=== PATIENT | male | born 1995 | race Caucasian/White ===

== ENCOUNTER 2016-08-14 23:53 | Emergency (ER) | payer OTHER ==
[~2016-08-14] VITALS: Ht 182.9 cm; Wt 92.0 kg
[~2016-08-14 23:53] MED LIST: ABILIFY10 MG PO; ABILIFY20 MG; ABILIFY20 MG PO; ABILIFY30 MG PO; ADVIL,NUPRIN,M200 MG PO; ALBUTEROL SULF8.5 GM IH; ARIPIPRAZOLE10 MG PO; ATARAX,VISTARIL25 MG PO; AZITHROMYCIN250 MG1 PO; BENADRYL25 MG PO; CLARITIN10 MG PO; FLEXERIL5 MG PO; FLUOXETINE HCL40 MG PO; FOCALIN XR20 MG; FOCALIN XR20 MG PO; KENALOG,ARISTOC80 GM TP; LABETALOL; MONTELUKAST SOD10 MG PO; MOTRIN600 MG PO; NAPROSYN500 MG PO; NAPROXEN500 MG PO; OMEPRAZOLE20 MG PO; PEPCID20 MG PO; PREDNISONE50 MG PO; PROAIR RESPICL90 MCG IH; ROBITUSSIN AC,T10 ML PO; SERTRALINE HCL50 MG PO; STRATTERA10 MG PO; STRATTERA40 MG PO
[2016-08-15 00:17] VITALS: BP 121/76
[2016-08-15] MEDS ORDERED: CLEOCIN300 MG PO (01:38)
[2016-08-15] MEDS ORDERED: NAPROSYN500 MG PO (01:38)
== END 2016-08-15 02:01 | disposition home or self-care (01) ==
LOC: RME 23:53 → EME 23:53 → RME 08-15 02:01
DX: L03.031 Cellulitis of right toe (principal)
CPT/HCPCS: 99281; 99284

== ENCOUNTER 2016-08-29 04:56 | Emergency (ER) | payer OTHER ==
[~2016-08-29] VITALS: Ht 190.5 cm; Wt 93.5 kg
[~2016-08-29 04:56] MED LIST changes: +CLEOCIN300 MG PO
[2016-08-29] MEDS ORDERED: ATARAX,VISTARIL25 MG PO (05:04)
[2016-08-29 05:44] VITALS: BP 145/80
[2016-08-30] MEDS ORDERED: ATARAX,VISTARIL25 MG PO (22:09)
== END 2016-08-29 05:49 | disposition home or self-care (01) ==
LOC: EME 04:56
DX: F41.0 Panic disorder [episodic paroxysmal anxiety] (principal); Z87.891 Personal history of nicotine dependence
CPT/HCPCS: 99281; 99284; Q0177

== ENCOUNTER 2016-08-30 21:58 | Emergency (ER) | payer OTHER ==
[~2016-08-30] VITALS: Ht 182.9 cm; Wt 90.4 kg
[2016-08-30] MEDS ORDERED: ATARAX,VISTARIL25 MG PO (22:09)
[2016-08-30 22:31] VITALS: BP 145/96
== END 2016-08-30 22:32 | disposition home or self-care (01) ==
LOC: EME 21:58
DX: F41.9 Anxiety disorder, unspecified (principal); F32.9 Major depressive disorder, single episode, unspecified; I10 Essential (primary) hypertension; F84.0 Autistic disorder; Z87.891 Personal history of nicotine dependence
CPT/HCPCS: 99281; 99283; Q0177

== ENCOUNTER 2016-09-14 21:17 | Emergency (ER) | payer OTHER ==
[~2016-09-14] VITALS: Ht 182.9 cm; Wt 91.0 kg
[2016-09-14] MEDS ORDERED: MOTRIN800 MG PO (22:54)
[2016-09-14 23:44] VITALS: BP 153/86
== END 2016-09-14 23:45 | disposition home or self-care (01) ==
LOC: EME 21:17
PROC: 2W3TX1Z Immobilization of Left Foot using Splint (ICD-10-PCS; principal; 2016-09-14)
DX: S90.02XA Contusion of left ankle, initial encounter (principal); S93.602A Unspecified sprain of left foot, initial encounter; V03.90XA Pedestrian on foot injured in collision with car, pick-up truck or van, unspecified whether traffic or nontraffic accident, initial encounter; Y93.01 Activity, walking, marching and hiking
CPT/HCPCS: 73610; 73630; 99281; 99284

== ENCOUNTER 2016-09-15 14:57 | Emergency (ER) | payer OTHER ==
[~2016-09-15] VITALS: Ht 182.9 cm; Wt 91.0 kg
[~2016-09-15 14:57] MED LIST changes: +MOTRIN800 MG PO
[2016-09-15 15:14] VITALS: BP 128/72
== END 2016-09-15 17:27 | disposition home or self-care (01) ==
LOC: EME 14:57
PROC: 2W3RX1Z Immobilization of Left Lower Leg using Splint (ICD-10-PCS; principal; 2016-09-15)
DX: S93.402A Sprain of unspecified ligament of left ankle, initial encounter (principal)
CPT/HCPCS: 99281; 99284

== ENCOUNTER 2017-03-15 00:41 | Emergency (ER) | payer OTHER ==
[~2017-03-15] VITALS: Ht 185.4 cm; Wt 96.4 kg
[2017-03-15 00:53] VITALS: BP 143/78
== END 2017-03-15 03:18 | disposition left against medical advice (07) ==
LOC: EME 00:41
DX: M79.674 Pain in right toe(s) (principal); Z53.21 Procedure and treatment not carried out due to patient leaving prior to being seen by health care provider
CPT/HCPCS: 73630

== ENCOUNTER 2017-09-01 20:48 | Emergency (ER) | payer OTHER ==
[~2017-09-01] VITALS: Ht 182.9 cm; Wt 109.2 kg
[~2017-09-01 20:48] MED LIST changes: +KEFLEX500 MG PO; +SKELAXIN800 MG PO
[2017-09-01 23:04] LABS: APPEARANCE SL.HAZY ((CLEAR)); BILIRUBIN NEGATIVE; BLOOD NEGATIVE; COLOR YELLOW ((YELLOW)); GLUCOSE (STRIP) NEGATIVE; KETONES NEGATIVE; LEUKOCYTES MODERATE; NITRITE NEGATIVE; PROTEIN (STRIP) 30; SPECIFIC GRAVITY 1.023 (1.000-1.030); UROBILINOGEN 0.2 MG/DL (0.2-1.0)
[2017-09-01 23:11] LABS: BACTERIA RARE /HPF; EPITHELIAL CELLS 1+ /HPF; MUCUS TRACE /LPF; UCUL ADDED? YES; WHITE BLOOD CELLS 40-50 /HPF (0-5)
[2017-09-02] MEDS ORDERED: CIPRO250 MG PO (01:47)
[2017-09-02 02:03] VITALS: BP 161/116
[2017-09-02 02:16] LABS: SOURCE URINE
[2017-09-02 10:01] LABS: HEPATITIS B SURFACE ANTIGEN Nonreactive; HEPATITIS C ANTIBODY Nonreactive
[2017-09-02 10:02] LABS: ANTI-HEPATITIS A VIRUS (IGM) Nonreactive
[2017-09-02 10:03] LABS: ANTI-HEPATITIS B CORE (IGM) Nonreactive
[2017-09-02 10:28] LABS: TREPONEMA ANTIBODY NEGATIVE (NEGATIVE)
[2017-09-02 13:29] LABS: CHLAMYDIA TRACHOMATIS NEGATIVE; NEISSERIA GONORRHOEAE NEGATIVE
== END 2017-09-02 02:00 | disposition home or self-care (01) ==
LOC: EME 20:48
PROVIDERS: Emergency Medicine
DX: S30.1XXA Contusion of abdominal wall, initial encounter (principal); T76.21XA Adult sexual abuse, suspected, initial encounter; Y04.2XXA Assault by strike against or bumped into by another person, initial encounter; Y92.26 Movie house or cinema as the place of occurrence of the external cause; N30.00 Acute cystitis without hematuria; Z11.3 Encounter for screening for infections with a predominantly sexual mode of transmission; I10 Essential (primary) hypertension; F31.9 Bipolar disorder, unspecified; F32.9 Major depressive disorder, single episode, unspecified; F90.9 Attention-deficit hyperactivity disorder, unspecified type; F84.0 Autistic disorder; F98.8 Other specified behavioral and emotional disorders with onset usually occurring in childhood and adolescence; Z87.891 Personal history of nicotine dependence
CPT/HCPCS: 80074; 81003; 86705; 86780; 86803; 87086; 87340; 87389; 87491; 87591; 99281; 99284; J0696

== ENCOUNTER 2017-10-01 21:05 | Emergency (ER) | payer OTHER ==
[~2017-10-01] VITALS: Ht 182.9 cm; Wt 111.0 kg
[~2017-10-01 21:05] MED LIST changes: +CIPRO250 MG PO
[2017-10-01 21:47] LABS: HEMATOCRIT 46.5 % (38.0-50.0); HEMOGLOBIN 16.5 G/DL (12.5-16.6); MCH 29.7 PG (29.0-34.0); MCHC 35.5 G/DL (30.0-36.0); MCV 83.8 FL (86-99); PLATELET COUNT 241 K/uL (156-360); RBC DIS.WIDTH-CV 11.8 % (11.8-14.6); RBC DIS.WIDTH-SD 35.6 % (39-53); RED BLOOD COUNT 5.55 M/uL (4.00-5.50); WHITE BLOOD COUNT 7.9 K/uL (4.1-10.2)
[2017-10-01 21:54] LABS: CHLORIDE 107 mEq/L (99-109); POTASSIUM 3.9 mEq/L (3.7-5.4); SODIUM 138 mEq/L (136-147)
[2017-10-01 21:56] LABS: AMPHETAMINE NEGATIVE (500 ng/mL); BARBITURATES NEGATIVE (200 ng/mL); BENZODIAZEPINES NEGATIVE (150 ng/mL); BUPRENORPHINE NEGATIVE (10 ng/mL); COCAINE NEGATIVE (150 ng/mL); METHADONE NEGATIVE (200 ng/mL); METHAMPHETAMINE NEGATIVE (500 ng/mL); OPIATES (MORPHINE) NEGATIVE (100 ng/mL); OXYCODONE NEGATIVE (100 ng/mL); PHENCYCLIDINE NEGATIVE (25 ng/mL); PROPOXYPHENE NEGATIVE (300 ng/mL); THC CANNABINOIDS NEGATIVE (50 ng/mL); TRICYCLIC ANTIDEPRESSANTS NEGATIVE (300 ng/mL)
[2017-10-01 21:56] LABS: GLUCOSE 84 mg/dL (70-99)
[2017-10-01 21:59] LABS: SERUM ETHYL ALCOHOL 80 mg/dL
[2017-10-01 22:00] LABS: CREATININE 0.9 mg/dL (0.6-1.3); GFR ESTIMATE (CALCULATED) > 59 mL/min/ (58.99-99999)
[2017-10-01 22:01] LABS: UREA NITROGEN (BUN) 12 mg/dL (9-23)
[2017-10-02 01:04] VITALS: BP 130/80
== END 2017-10-02 01:12 | disposition home or self-care (01) ==
LOC: EME 21:05
DX: F10.129 Alcohol abuse with intoxication, unspecified (principal); F31.9 Bipolar disorder, unspecified; F70 Mild intellectual disabilities; Y90.3 Blood alcohol level of 60-79 mg/100 ml; Z87.891 Personal history of nicotine dependence
CPT/HCPCS: 80048; 85027; 90837; 99281; 99285; G0480

== ENCOUNTER 2017-10-24 16:25 | Emergency (ER) | payer OTHER ==
[~2017-10-24] VITALS: Ht 180.3 cm; Wt 98.6 kg
[2017-10-24 17:46] VITALS: BP 142/86
== END 2017-10-24 17:46 ==
LOC: EME 16:25
DX: R10.9 Unspecified abdominal pain (principal); I10 Essential (primary) hypertension; F84.0 Autistic disorder; F31.9 Bipolar disorder, unspecified; F90.9 Attention-deficit hyperactivity disorder, unspecified type; F32.9 Major depressive disorder, single episode, unspecified; Z87.891 Personal history of nicotine dependence
CPT/HCPCS: 99281; 99284

== ENCOUNTER 2017-12-04 03:57 | Emergency (ER) | payer OTHER ==
[~2017-12-04] VITALS: Ht 188 cm; Wt 97.7 kg
[2017-12-04] MEDS ORDERED: AUGMENTIN875 MG PO (05:49)
[2017-12-04] MEDS ORDERED: MOTRIN800 MG PO (05:49)
[2017-12-04 06:10] VITALS: BP 146/101
== END 2017-12-04 06:11 | disposition home or self-care (01) ==
LOC: EME → EDBD 03:57 → EME 03:57
DX: S01.81XA Laceration without foreign body of other part of head, initial encounter (principal); Y09 Assault by unspecified means; I10 Essential (primary) hypertension; F31.9 Bipolar disorder, unspecified; F84.0 Autistic disorder; F90.9 Attention-deficit hyperactivity disorder, unspecified type; F32.9 Major depressive disorder, single episode, unspecified; Z87.891 Personal history of nicotine dependence
CPT/HCPCS: 70450; 70486